=== PATIENT | male | born 1970 | race Caucasian/White ===

== ENCOUNTER 2017-03-29 02:15 | Emergency (ER) | payer BC ==
[~2017-03-29] VITALS: Ht 177.8 cm; Wt 86.4 kg
[2017-03-29 02:25] VITALS: TEMP 97.1; Ht 177.8 cm; Wt 86.4 kg
[2017-03-29 03:49] LABS: BASOPHIL # 0.1 10^3/ul (0.0-0.1); BASOPHILS % 0.6 % (0.0-2.0); EOSINOPHILS # 0.1 10^3/ul (0.0-0.5); HEMATOCRIT 35.3 % (42.0-52.0); HEMOGLOBIN 11.6 g/dl (14.0-18.0); LYMPHOCYTES # 2.2 10^3/ul (0.8-2.9); LYMPHOCYTES % 15.4 % (15.0-51.0); MEAN CORPUSCULAR HEMOGLOBIN 29.4 pg (29.0-33.0); MEAN CORPUSCULAR HGB CONC 32.9 g/dl (32.0-37.0); MEAN CORPUSCULAR VOLUME 89.4 fl (82.0-101.0); MEAN PLATELET VOLUME 11.2 fl (7.4-10.4); NEUTROPHILS % 75.4 % (39.0-77.0); PLATELET COUNT 180 10^3/UL (140-415); RED BLOOD COUNT 3.95 10^6/ul (4.70-6.10); RED CELL DISTRIBUTION WIDTH 13.2 % (11.5-14.5); WHITE BLOOD COUNT 14.5 10^3/ul (4.8-10.8)
[2017-03-29] MEDS ORDERED: SOD CHLORIDE 0.9% 1,000 ML IV STA (04:18)
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
[2017-03-29 06:18] VITALS: BP 92/68; PULSE 100; RESP 18
== END 2017-03-29 06:21 | disposition home or self-care (01) ==
LOC: E/R 02:15
DX: R55 Syncope and collapse (principal); I83.892 Varicose veins of left lower extremity with other complications
CPT/HCPCS: 85025; 86850; 86900; 86901; 93005; 99284; J7030; Z7610

== ENCOUNTER 2017-04-21 21:32 | Emergency (ER) | payer BC ==
[~2017-04-21] VITALS: Ht 165.1 cm; Wt 92.0 kg
[2017-04-21 21:42] VITALS: Ht 165.1 cm; Wt 92.0 kg
[2017-04-22] MEDS ORDERED: KETOROLAC 15 MG INJ IM STA (00:02)
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
[2017-04-22] MEDS ORDERED: DIAZEPAM 5 MG TAB PO ONE (00:30)
[2017-04-22] MEDS ORDERED: IBUP-1542 PO (01:25)
[2017-04-22 01:41] VITALS: PULSE 78; RESP 22; TEMP 98.4
== END 2017-04-22 01:40 | disposition home or self-care (01) ==
LOC: FTE 21:32
DX: R51 Headache (principal); M54.2 Cervicalgia; M54.9 Dorsalgia, unspecified
CPT/HCPCS: 96372; 99284; J1885; Z7610

== ENCOUNTER 2018-11-09 13:01 | Emergency (ER) | payer BC, MEDICAID ==
[~2018-11-09] VITALS: Ht 165.1 cm; Wt 88.6 kg
[~2018-11-09 13:01] MED LIST: IBUP-1542 PO
[2018-11-09 13:04] VITALS: BP 123/81; PULSE 108; RESP 24; Ht 165.1 cm; Wt 88.6 kg
[2018-11-09] MEDS ORDERED: LIDOCAINE 1% (MPF) 5 ML VIAL INJ ONE (13:30)
[2018-11-09] MEDS ORDERED: DIPHTH/TET/ACEL PERTUSS (ADULT) 0.5 ML VIAL IM* ONE (13:30)
[2018-11-09] MEDS ORDERED: PROM6.2515 PO (14:45)
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
== END 2018-11-09 15:18 | disposition home or self-care (01) ==
LOC: FTE 13:01
DX: S01.411A Laceration without foreign body of right cheek and temporomandibular area, initial encounter (principal); W01.0XXA Fall on same level from slipping, tripping and stumbling without subsequent striking against object, initial encounter; Y92.9 Unspecified place or not applicable; Z23 Encounter for immunization
CPT/HCPCS: 12011; 70140; 90471; 90715; Z7502; Z7610